=== PATIENT | male | born 1985 | race Caucasian/White ===

== ENCOUNTER 2019-04-07 16:18 | Emergency (ER) | payer SELFPAY ==
[~2019-04-07] VITALS: Ht 167.6 cm; Wt 63.5 kg
[2019-04-07 16:24] VITALS: Ht 167.6 cm; Wt 63.5 kg
[2019-04-07 17:41] VITALS: BP 121/68
== END 2019-04-07 17:47 | disposition home or self-care (01) ==
LOC: ED 16:18
DX: S61.512A Laceration without foreign body of left wrist, initial encounter (principal); W26.8XXA Contact with other sharp object(s), not elsewhere classified, initial encounter; Y93.89 Activity, other specified; Y92.89 Other specified places as the place of occurrence of the external cause; Y99.8 Other external cause status
CPT/HCPCS: 90715; J2001

== ENCOUNTER 2019-04-09 10:34 | Emergency (ER) | payer SELFPAY | END 2019-04-09 11:29 | disposition left against medical advice (07) | LOC: ED 10:34 | DX: Z53.21 Procedure and treatment not carried out due to patient leaving prior to being seen by health care provider (principal) ==

== ENCOUNTER 2019-04-17 10:20 | Emergency (ER) | payer MEDICAID ==
[~2019-04-17] VITALS: Ht 167.6 cm; Wt 64.4 kg
[2019-04-17 10:26] VITALS: BP 120/67; Ht 167.6 cm; Wt 64.4 kg
== END 2019-04-17 11:37 | disposition home or self-care (01) ==
LOC: ED 10:20
DX: S51.812D Laceration without foreign body of left forearm, subsequent encounter (principal); X58.XXXD Exposure to other specified factors, subsequent encounter